=== PATIENT | female | born 1975 | race Caucasian/White ===

== ENCOUNTER 2023-01-17 11:25 | Emergency (ER) | payer MEDICAID ==
[~2023-01-17] VITALS: Ht 160 cm; Wt 68.0 kg
[2023-01-17] MEDS ORDERED: KETOROLAC 30MG/ML VIAL IV ONE (15:45)
[2023-01-17 16:10] VITALS: BP 167/102
[2023-01-17 16:19] LABS: CLARITY URINE CLEAR (CLEAR); COLOR URINE YELLOW (YELLOW); KETONES URINE TRACE (NEGATIVE); LEUKOCYTE ESTERASE URINE 2+ (NEGATIVE); NITRITE URINE NEGATIVE (NEGATIVE); OCCULT BLOOD URINE NEGATIVE (NEGATIVE); PH URINE 6.5 (4.5-8.0); PROTEIN URINE NEGATIVE (NEGATIVE); SPECIFIC GRAVITY URINE 1.016 (1.005-1.030); UROBILINOGEN URINE 0.2 E.U./dL (0.2-1.0)
[2023-01-17 16:24] LABS: BASOPHILS % 0.6 % (0.0-2.0); EOSINOPHILS % 0.9 % (0.0-5.0); HEMATOCRIT. 39.7 % (36.0-48.0); HEMOGLOBIN. 13.7 g/dL (12.0-16.0); LYMPHOCYTES % 18.3 % (20.0-50.0); MEAN CORPUSCULAR HEMOGLOBIN 30.3 pg (28.0-32.0); MEAN CORPUSCULAR VOLUME 87.8 fL (81.0-99.0); MEAN PLATELET VOLUME 8.3 fl (7.4-10.4); MONOCYTES % 5.6 % (2.0-8.0); NEUTROPHILS % 74.6 % (40.0-76.0); PLATELET 292 x1000/uL (130-400); RED BLOOD CELL COUNT 4.52 mill/uL (4.2-5.4); RED CELL DISTRIBUTION WIDTH 13.6 % (11.6-14.6)
[2023-01-17 16:33] LABS: PROTHROMBIN TIME 10.8 sec (9.6-11.0)
[2023-01-17 16:37] LABS: CHLORIDE 106 mEq/L (98-107)
[2023-01-17] MEDS ORDERED: AMOX1TAB16 MT (20:02)
[2023-01-17] MEDS ORDERED: IOHEXOL-300 100 ML BOTTLE ONE (20:04)
== END 2023-01-17 21:12 | disposition home or self-care (01) ==
LOC: ER 11:25
DX: K57.32 Diverticulitis of large intestine without perforation or abscess without bleeding (principal); E78.00 Pure hypercholesterolemia, unspecified; Z98.51 Tubal ligation status
CPT/HCPCS: 36415; 74177; 76830; 76856; 80053; 81003; 81025; 83605; 83690; 85025; 85610; 86850; 86900; 86901; 96374; 99285; J1885; Q9967; Z7610